=== PATIENT | female | born 2000 | race Two or more races ===

== ENCOUNTER 2019-11-06 00:22 | Emergency (ER) | payer OTHER ==
[~2019-11-06] VITALS: Ht 160 cm; Wt 59.0 kg
--- NOTE | 2019-11-06 00:28 | NUR ---
PT AAOX3, PERCY FOUND "WITH 15 OTHER KIDS [address]ING IN THE [address]RE[address]" PER RA. ALSO, PER RA PT WAS IN THE [employer] "ACTING LIKE A POSSUM". PLACED IN BED 12, SEEN BY MD, ON MONITOR AND PULSE OX. NO ACUTE DISTRESS NTOED. +ETOH AND RED EYES NOTED. PT WAS TOLD TO CALL SOMEONE TO PICK HER UP BUT PT STATING "CHARGE MY IPHONE SX."
--- NOTE | 2019-11-06 00:32 | NUR ---
PT STATING HER PHONE "I PHONE SX" IS IN THE "FRONT" PT WAS TOLD SHE IS IN THE HOSPITAL, NOW STATING "MY PHONE IS IN THE HOSPITAL" ETOH NOTED +EYES RED.
--- NOTE | 2019-11-06 01:11 | NUR ---
Patient is resting comfortably in bed. Easily aroused. VSS.
[2019-11-06 02:10] VITALS: BP 97/46
--- NOTE | 2019-11-06 03:24 | NUR ---
PATIENT IS AWAKE, AMBULATORY WITH STEADY GAIT TO THE RESTROOM. MD NOTIFIED.
--- NOTE | 2019-11-06 03:45 | NUR ---
PATIENT IS PICKED UP FRIEND.
--- NOTE | 2019-11-06 03:45 | NUR ---
Patient discharged to home in stable condition. Written and verbal after care instructions given. Patient verbalizes understanding of instruction.
== END 2019-11-06 03:46 | disposition home or self-care (01) ==
LOC: ER 00:29
DX: F10.129 Alcohol abuse with intoxication, unspecified (principal); Y90.9 Presence of alcohol in blood, level not specified